=== PATIENT | female | born 1970 ===

== ENCOUNTER 2025-03-04 12:30 | Inpatient (IN) | payer OTHER ==
[~2025-03-04] VITALS: Ht 157.5 cm; Wt 68.0 kg
[2025-03-04] MEDS ORDERED: METFORMIN HCL1000 M2 PO (14:26)
[2025-03-04 14:29] VITALS: BP 140/83
[2025-03-04 16:25] LABS: INR 0.95; PARTIAL THROMBOPLASTIN TIME 24.2 SECONDS (22.0-34.0); PROTHROMBIN TIME 10.4 SECONDS (9.0-11.5)
[2025-03-09] MEDS ORDERED: METRONIDAZOLE/SODIUM CHLORIDE 500 MG/100 ML PIGGYBACK IV ONE (09:45)
[2025-03-09] MEDS ORDERED: BUPIVACAINE HCL 30 ML VIAL IJ ONE (09:45)
[2025-03-09] MEDS ORDERED: LIDOCAINE HCL 1%/EPINEPHRINE 20ML VIAL IJ ONE (09:45)
[2025-03-09] MEDS ORDERED: levoFLOXacin IN DEXTROSE 5 % 5 MG/ML PIGGYBAG IV ONE (09:45)
[2025-03-09] MEDS ORDERED: SUGAMMADEX SODIUM 200 MG/2 ML VIAL IV ONE (10:52)
[2025-03-09] MEDS ORDERED: 0.9 % SODIUM CHLORIDE 1,000 ML IV SCH (11:15)
[2025-03-09] MEDS ORDERED: DEXTROSE 50 % IN WATER 0.5 G/ML VIAL IV PRN ×2 (11:15→14:15)
[2025-03-09] MEDS ORDERED: ONDANSETRON HCL 2 MG/ML VIAL IV PRN (11:15)
[2025-03-09] MEDS ORDERED: MORPHINE SULFATE 4 MG/ML CARTRIDGE IV PRN (11:15)
[2025-03-09] MEDS ORDERED: OxyCODONE HCL 5 MG TABLET (ROXICODONE) PO PRN (11:15)
[2025-03-09] MEDS ORDERED: HYOSCYAMINE SULFATE 0.125 MG TAB.SUBL SL SCH (13:00)
[2025-03-09 13:27] LABS: HEMATOCRIT 38.7 % (36.0-45.00); MEAN CELL VOLUME 86.3 fL (80.00-100.00); MEAN CORPUSCULAR HEMOGLOBIN 28.9 pg (27.00-32.0); MEAN CORPUSCULAR HGB CONC 33.5 g/dl (32.0-36.0); PLATELET COUNT 284 K/uL (150-450); RED BLOOD COUNT 4.48 M/uL (4.00-6.00); RED CELL DISTRIBUTION WIDTH 13.4 % (11.5-14.5)
[2025-03-09 13:54] VITALS: BP 120/79; O2SAT 94
[2025-03-09] MEDS ORDERED: ACETAMINOPHEN 500 MG GEL..CAP PO SCH (14:00)
[2025-03-09] MEDS ORDERED: INSULIN LISPRO 1,000 UNIT/10 ML UNITS SUBCUTANEO PRN (14:15)
[2025-03-09 14:58] LABS: ALBUMIN 3.7 gm/dL (3.4-5.0); CALCIUM 8.6 mg/dL (8.5-10.1); CREATININE SERUM 0.77 mg/dL (0.55-1.02); GFR 78.12; MAGNESIUM 1.7 mg/dL (1.8-2.4); PHOSPHOROUS 3.9 mg/dL (2.5-4.9); POTASSIUM 4.36 mEq/L (3.5-5.1)
[2025-03-09 16:57] VITALS: BP 125/77; O2SAT 99
[2025-03-09] MEDS ORDERED: POLYETHYLENE GLYCOL 3350 17 GM BLIST.PACK PO SCH (17:00)
[2025-03-09] MEDS ORDERED: GABAPENTIN 300 MG CAPSULE PO SCH (17:00)
[2025-03-09] MEDS ORDERED: METRONIDAZOLE/SODIUM CHLORIDE 500 MG/100 ML PIGGYBACK IV SCH (17:00)
[2025-03-09] MEDS ORDERED: FAMOTIDINE/PF 20 MG/2 ML VIAL IV PUSH SCH (21:00)
[2025-03-10] VITALS: BP 117/66; O2SAT 98
[2025-03-10 06:48] LABS: HEMATOCRIT 38.2 % (36.0-45.00); HEMOGLOBIN 12.9 g/dL (12.0-15.00); MEAN CELL VOLUME 87.5 fL (80.00-100.00); MEAN CORPUSCULAR HEMOGLOBIN 29.6 pg (27.00-32.0); MEAN CORPUSCULAR HGB CONC 33.8 g/dl (32.0-36.0); PLATELET COUNT 267 K/uL (150-450); RED BLOOD COUNT 4.36 M/uL (4.00-6.00); RED CELL DISTRIBUTION WIDTH 13.3 % (11.5-14.5)
[2025-03-10 07:43] LABS: ALBUMIN 3.4 gm/dL (3.4-5.0); CALCIUM 8.2 mg/dL (8.5-10.1); CREATININE SERUM 0.61 mg/dL (0.55-1.02); GFR 102.21; MAGNESIUM 1.9 mg/dL (1.8-2.4); POTASSIUM 4.17 mEq/L (3.5-5.1)
[2025-03-10 08:00] VITALS: BP 105/63; O2SAT 98
[2025-03-10] MEDS ORDERED: PHENOL 177 ML BOTTLE MM SCH (09:00)
[2025-03-10 16:50] VITALS: BP 103/62; O2SAT 98
[2025-03-10] MEDS ORDERED: ENOXAPARIN SODIUM 40 MG/0.4 ML SYRINGE SUBCUTANEO SCH (17:00)
[2025-03-10 22:40] VITALS: BP 143/81; O2SAT 97
[2025-03-11 01:11] VITALS: BP 116/70; O2SAT 100
[2025-03-11 08:00] VITALS: BP 124/69; O2SAT 97
[2025-03-11] MEDS ORDERED: CYCLOBENZAPRINE HCL 5 MG TABLET PO SCH (09:00)
[2025-03-11] MEDS ORDERED: ENOXAPARIN SODIUM 40 MG/0.4 ML SYRINGE SUBCUTANEO SCH (09:00)
[2025-03-11 16:00] VITALS: BP 134/82; O2SAT 98
[2025-03-12 01:35] VITALS: BP 106/58; O2SAT 97
[2025-03-12 06:05] LABS: CALCIUM 8.4 mg/dL (8.5-10.1); CREATININE SERUM 0.62 mg/dL (0.55-1.02); GFR 100.31; MAGNESIUM 1.9 mg/dL (1.8-2.4); PHOSPHOROUS 3.3 mg/dL (2.5-4.9); POTASSIUM 3.8 mEq/L (3.5-5.1)
[2025-03-12 06:21] LABS: HEMATOCRIT 33.6 % (36.0-45.00); HEMOGLOBIN 11.4 g/dL (12.0-15.00); MEAN CELL VOLUME 87.4 fL (80.00-100.00); MEAN CORPUSCULAR HEMOGLOBIN 29.7 pg (27.00-32.0); MEAN CORPUSCULAR HGB CONC 33.9 g/dl (32.0-36.0); PLATELET COUNT 254 K/uL (150-450); RED BLOOD COUNT 3.85 M/uL (4.00-6.00); RED CELL DISTRIBUTION WIDTH 13.4 % (11.5-14.5)
[2025-03-12 08:00] VITALS: BP 144/84; O2SAT 98
[2025-03-12] MEDS ORDERED: CYCLOBENZAPRINE5 MG PO (13:20)
[2025-03-12] MEDS ORDERED: PEPCID AC20 MG PO (13:21)
[2025-03-12] MEDS ORDERED: INTESTINEX680 M1 PO (13:21)
[2025-03-12] MEDS ORDERED: TRAM1TAB98 PO (13:21)
== END 2025-03-12 18:19 | disposition home or self-care (01) | DRG 330 ==
LOC: SURH 03-09 07:09 → O/R 03-09 07:09 → SURH 03-09 10:15
PROVIDERS: ADMIT Surgery; ATTEND Surgery
PROC: 07BB4ZZ Excision of Mesenteric Lymphatic, Percutaneous Endoscopic Approach (ICD-10-PCS; 2025-03-09)
PROC: 07BC4ZZ Excision of Pelvis Lymphatic, Percutaneous Endoscopic Approach (ICD-10-PCS; 2025-03-09)
PROC: 0DTF4ZZ Resection of Right Large Intestine, Percutaneous Endoscopic Approach (ICD-10-PCS; principal; 2025-03-09 10:15)
DX: C18.2 Malignant neoplasm of ascending colon (principal); C79.9 Secondary malignant neoplasm of unspecified site; K63.5 Polyp of colon; R59.0 Localized enlarged lymph nodes; R19.4 Change in bowel habit; E11.9 Type 2 diabetes mellitus without complications; Z79.84 Long term (current) use of oral hypoglycemic drugs

== ENCOUNTER 2025-06-11 06:00 | Day surgery (SDC) | payer OTHER ==
[~2025-06-11 06:00] MED LIST: CYCLOBENZAPRINE5 MG PO; INTESTINEX680 M1 PO; METFORMIN HCL1000 M2 PO; PEPCID AC20 MG PO; TRAM1TAB98 PO
[2025-06-11] MEDS ORDERED: BUPIVACAINE HCL/MPF 0.5% 30ML VIAL ONE (06:56)
[2025-06-11] MEDS ORDERED: LIDOCAINE HCL 1%/EPINEPHRINE 20ML VIAL IJ ONE (06:56)
[2025-06-11] MEDS ORDERED: HEPARIN SODIUM,PORCINE/PF 100 UNIT/ML SYRINGE IV ONE (07:01)
[2025-06-11] MEDS ORDERED: CEFAZOLIN SODIUM 1,000 MG VIAL ONE (07:12)
[2025-06-11] MEDS ORDERED: TRAM1TAB98 PO (08:16)
[2025-06-11 11:43] VITALS: BP 137/83; O2SAT 100
== END 2025-06-11 10:35 | disposition home or self-care (01) ==
LOC: CIR.AMB 06:00
PROVIDERS: ATTEND Surgery
DX: C18.2 Malignant neoplasm of ascending colon (principal); Z88.0 Allergy status to penicillin; Z88.6 Allergy status to analgesic agent
CPT/HCPCS: 36561; C1751